=== PATIENT | female | born 2005 | race Caucasian/White ===

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

== ENCOUNTER → 2025-01-13 | Outpatient (CLI) | payer MEDICAID, OTHER ==
[~2025-01-13] MED LIST: MULTTAB20 PO; ONDA-282 PO
[2025-01-13 14:48] LABS: Trichomonas vaginalis (AMP) NOT DETECTED (NEGATIVE)
[2025-01-13 15:12] LABS: GC DNA AMPLIFICATION NEGATIVE (NEGATIVE)
[2025-01-13 15:44] LABS: PLATELET COUNT, AUTOMATED 274 10^3/uL (150-450)
[2025-01-13 16:13] LABS: GLUCOSE CHALLENGE TEST 1 HOUR 98 MG/DL (LESS THAN 140)
[2025-01-13 16:48] LABS: HIV 1&2 SCREEN NEGATIVE (NEGATIVE)
[2025-01-13 16:56] LABS: HEPATITIS C VIRUS ABY INDEX < 0.02 INDEX (<0.8)
== END ==
LOC: M PLALAB 11:25
PROVIDERS: ATTEND Nurse Practitioner Family
DX: Z34.80 Encounter for supervision of other normal pregnancy, unspecified trimester (principal)

== ENCOUNTER 2025-02-08 11:03 | Emergency (ER) | payer MEDICAID, OTHER ==
[~2025-02-08] VITALS: Ht 167.6 cm; Wt 97.7 kg
[2025-02-08] MEDS ORDERED: MULTTAB20 PO (11:22)
[2025-02-08] MEDS ORDERED: ONDA-282 PO (11:22)
[2025-02-08] MEDS: LEVALBUTEROL 1.25 MG 0.5ML CONCENTRATE NEB NEB ONE (12:52)
[2025-02-08] MEDS: MAALOX 30 ML SUSP *UDC PO ONE (15:07)
[2025-02-08 15:23] LABS: BASO # 0.0 10^3/uL (0.0-0.2); BASO % 0.3 % (0.0-1.0); EOS # 0.1 10^3/uL (0.0-0.5); EOS % 0.6 % (0.0-3.0); LYMPH # 2.1 10^3/uL (1.5-5.0); LYMPH % 18.5 % (24.0-44.0); MONO # 0.8 10^3/uL (0.0-0.8); MONO % 7.0 % (2.0-8.0); NEUTROPHILS # 8.3 10^3/uL (1.5-8.5); NEUTROPHILS % 73.0 % (36.0-66.0); PLATELET COUNT, AUTOMATED 223 10^3/uL (150-450)
[2025-02-08] MEDS: MORPHINE 4 MG/ML 1 ML VIAL IV ONE (15:40)
[2025-02-08 15:48] LABS: INR 0.91
[2025-02-08 15:56] LABS: CK-MB VALUE MASS 2.2 NG/ML (<3.6)
[2025-02-08 15:57] LABS: CPK CREATINE PHOSPHOKINASE 70 U/L (34-145); MB/CK RELATIVE INDEX 3.14 (< OR =4)
[2025-02-08 16:01] LABS: CALCIUM LEVEL 8.2 MG/DL (8.5-10.1); CARBON DIOXIDE LEVEL 23 MMOL/L (20-31); CHLORIDE LEVEL 108 MMOL/L (98-107); CREATININE FOR GFR 0.42 MG/DL (0.55-1.30); GLOMERULAR FILTRATION RATE > 90.0 (>60); POTASSIUM SERUM 3.6 MMOL/L (3.5-5.1); SODIUM LEVEL 141 MMOL/L (136-145)
[2025-02-08] MEDS: NS 500 ML IV ONE (16:03)
[2025-02-08] MEDS: ACETAMINOPHEN *IV* 1,000 MG in IV 1 EA IV ONE (16:14)
[2025-02-08] MEDS ORDERED: ISOVUE-370 76% 100 ML VIAL As Ordered ONE (16:18)
[2025-02-08 18:00] VITALS: BP 116/75; TEMP 98.1; O2SAT 98
== END 2025-02-08 18:11 | disposition home or self-care (01) ==
LOC: M ED 11:03
DX: O26.893 Other specified pregnancy related conditions, third trimester (principal); R07.9 Chest pain, unspecified; O99.513 Diseases of the respiratory system complicating pregnancy, third trimester; R06.02 Shortness of breath; F32.A Depression, unspecified; F17.200 Nicotine dependence, unspecified, uncomplicated; Z91.030 Bee allergy status; Z91.018 Allergy to other foods; Z91.010 Allergy to peanuts; Z3A.34 34 weeks gestation of pregnancy; Z79.83 Long term (current) use of bisphosphonates; Z79.899 Other long term (current) drug therapy
CPT/HCPCS: 59025; 71045; 71275; 80048; 82550; 82553; 84484; 85025; 85610; 85730; 87486; 87581; 87633; 87798; 93970; 94640; 96365; 99284; G0463; J0131; Q9967

== ENCOUNTER → 2025-02-24 | Outpatient (REF) | payer MEDICAID, OTHER | LOC: M SFHCWAGY 16:45 | PROVIDERS: ATTEND Advanced Practice Midwife | DX: Z34.83 Encounter for supervision of other normal pregnancy, third trimester (principal) ==

== ENCOUNTER 2025-03-24 07:38 | Inpatient (IN) | payer MEDICAID, OTHER ==
[~2025-03-24] VITALS: Ht 167.6 cm; Wt 107.0 kg
[2025-03-24] VITALS (16 sets, daily range): BP systolic 118–145; BP diastolic 56–92; O2SAT 97–98
[2025-03-24] MEDS ORDERED: ACET-897 PO (08:00)
[2025-03-24] MEDS ORDERED: TUMS500C PO (08:00)
[2025-03-24 08:53] LABS: PLATELET COUNT, AUTOMATED 224 10^3/uL (150-450)
[2025-03-24 09:54] LABS: HIV 1&2 SCREEN NEGATIVE (NEGATIVE)
[2025-03-24 10:01] LABS: HEPATITIS C VIRUS ABY INDEX < 0.02 INDEX (<0.8)
[2025-03-24] MEDS ORDERED: OXYTOCIN DRIP 30 UNITS in IV 1 EA IV PRN (10:05)
[2025-03-24] MEDS ORDERED: HOME MED LIST COMPLETE! XX SCH (10:20)
[2025-03-24] MEDS: miSOPROStol 50 MCG 1/2 TABLET PO ONE (10:21)
[2025-03-24] MEDS: miSOPROStol 25 MCG 1/4 TABLET PV ONE (14:23)
[2025-03-24 18:26] LABS: PLATELET COUNT, AUTOMATED 214 10^3/uL (150-450)
[2025-03-24 18:49] LABS: ALT/SGPT 13 U/L (7.0-40); AST/SGOT 23 U/L (<34); CALCIUM LEVEL 9.0 MG/DL (8.5-10.1); CARBON DIOXIDE LEVEL 21 MMOL/L (20-31); CHLORIDE LEVEL 107 MMOL/L (98-107); CREATININE FOR GFR 0.49 MG/DL (0.55-1.30); GLOMERULAR FILTRATION RATE > 90.0 (>60); POTASSIUM SERUM 4.0 MMOL/L (3.5-5.1); SODIUM LEVEL 140 MMOL/L (136-145)
[2025-03-24] MEDS: BUTORPHANOL 2 MG/ML 1 ML VIAL IV ONE (21:32)
[2025-03-24] MEDS: LR 1,000 ML IV SCH (22:23)
[2025-03-24] MEDS: OXYTOCIN DRIP 30 UNITS in IV 1 EA IV SCH (22:23)
[2025-03-25] VITALS (67 sets, daily range): BP systolic 119–162; BP diastolic 58–100
[2025-03-25] MEDS ORDERED: diphenhydrAMINE 50 MG/ML VIAL IV PRN (09:45)
[2025-03-25] MEDS ORDERED: EPIDURAL/PCA KEYS XX PRN (09:45)
[2025-03-25] MEDS ORDERED: ONDANSETRON 4MG/2ML VIAL IV PRN (09:45)
[2025-03-25] MEDS ORDERED: LR 500 ML IV PRN (09:45)
[2025-03-25] MEDS ORDERED: NALOXONE INJ 0.4 MG/1 ML VIAL IV PRN (09:45)
[2025-03-25] MEDS ORDERED: FENTANYL 2 MCG/ML ROPIVACAINE 0.2% IN 0.9% NACL 100 ML IVBAG As Ordered ONE (09:49)
[2025-03-25] MEDS: FENTANYL/ROPIVACAINE/NACL BAG 100 ML EPIDURAL SCH (10:28)
[2025-03-25] MEDS ORDERED: METHYLERGONOVINE MALEATE 0.2 MG/ML 1 ML VIAL As Ordered ONE (21:19)
[2025-03-25] MEDS: METHYLERGONOVINE MALEATE 0.2 MG/ML 1 ML VIAL IM ONE (21:20)
[2025-03-25] MEDS: TRANEXAMIC ACID INJection 1,000 MG in NS 100 ML IV ONE (21:28)
[2025-03-25] MEDS ORDERED: LIDOCAINE 1% MDV 20 ML VIAL As Ordered ONE (21:36)
[2025-03-25 21:40] LABS: CORD GAS ABE V -8.4; CORD GAS HCO3 V 21.7 MMOL/L; CORD GAS O2 SAT V 19.8 %; CORD GAS PCO2 V 62.9 mmHg; CORD GAS PH V 7.156 UNITS; CORD GAS PO2 V 13.8 mmHg; CORD GAS SBC V 16.0 MMOL/L; CORD GAS TCO2 V 23.6 MMOL/L
[2025-03-25] MEDS: LIDOCAINE 1% MDV 20 ML VIAL SC ONE (21:40)
[2025-03-25] MEDS ORDERED: METHYLERGONOVINE MALEATE 0.2 MG TAB PO PRN (22:10)
[2025-03-25] MEDS ORDERED: RHOGAM 300MCG (1500IU) INJ IM SCH (22:10)
[2025-03-25] MEDS ORDERED: ACETAMINOPHEN 500 MG TAB PO PRN (22:10)
[2025-03-25] MEDS ORDERED: IBUPROFEN 800 MG TAB PO PRN (22:10)
[2025-03-25] MEDS ORDERED: MOM 30 ML SUSPENSION UDC PO PRN (22:10)
[2025-03-25] MEDS ORDERED: ACETAMINOPHEN 325 MG TAB PO PRN (22:10)
[2025-03-26 00:47] VITALS: BP 136/81; O2SAT 97
[2025-03-26 06:00] VITALS: BP 134/75; O2SAT 97
[2025-03-26] MEDS: PRENATAL VITAMINS CHEWABLE TABLET PO SCH (08:33)
[2025-03-26] MEDS: DOCUSATE SODIUM 100 MG CAPSULE PO PRN (08:34)
[2025-03-26] MEDS: IBUPROFEN 600 MG TAB PO PRN (15:05)
[2025-03-26 18:00] VITALS: BP 124/74; O2SAT 97
[2025-03-26] MEDS: DIBUCAINE 1% OINTMENT 30 GM TOP PRN (23:28)
[2025-03-27 06:00] VITALS: BP 118/70; O2SAT 98
[2025-03-27] MEDS: MEASLES,MUMPS,RUBELLA VACCINE INJ (MMR-II) SC.IMMUN ONE (08:49)
[2025-03-27] MEDS: FLUZONE VACCINE TRI PF(25-26) 0.5ML SYRINGE IM.IMMUN ONE (13:20)
== END 2025-03-27 13:21 | disposition home or self-care (01) | DRG 560 ==
LOC: M LDI 07:38 → M OBS 03-26 00:29
PROVIDERS: ADMIT Student in an Organized Health Care Education/Training Program; ATTEND Student in an Organized Health Care Education/Training Program
PROC: 3E0P7GC Introduction of Other Therapeutic Substance into Female Reproductive, Via Natural or Artificial Opening (ICD-10-PCS; 2025-03-24)
PROC: 3E033VJ Introduction of Other Hormone into Peripheral Vein, Percutaneous Approach (ICD-10-PCS; 2025-03-24)
PROC: 10E0XZZ Delivery of Products of Conception, External Approach (ICD-10-PCS; principal; 2025-03-25)
PROC: 0KQM0ZZ Repair Perineum Muscle, Open Approach (ICD-10-PCS; 2025-03-25)
PROC: 10907ZC Drainage of Amniotic Fluid, Therapeutic from Products of Conception, Via Natural or Artificial Opening (ICD-10-PCS; 2025-03-25)
DX: O48.0 Post-term pregnancy (principal); O66.0 Obstructed labor due to shoulder dystocia; Z37.0 Single live birth; Z3A.40 40 weeks gestation of pregnancy; Z91.030 Bee allergy status; Z91.018 Allergy to other foods; Z91.010 Allergy to peanuts; O69.82X0 Labor and delivery complicated by other cord entanglement, without compression, not applicable or unspecified; O70.1 Second degree perineal laceration during delivery